=== PATIENT | female | born 1975 | race African-American/Black ===

== ENCOUNTER 2019-08-19 20:45 | Emergency (ER) | payer SELFPAY ==
[2019-08-19 20:48] VITALS: BP 153/103; PULSE 91; RESP 16; TEMP 36.9; O2SAT 98; BMI 39.9
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
[2019-08-19] MEDS: Acetaminophen 500 MG Tablet 1000 MG PO (21:18)
--- NOTE | 2019-08-19 21:50 | RAD_ITS ---
HISTORY: FELL ROLLER SKATINGLEFT HAND PAIN ADDITIONAL HISTORY: None provided. TECHNIQUE: Left hand 3 views Number of images including paperwork: 3 COMPARISON: None FINDINGS: BONES: No acute fracture. JOINTS: No subluxation. SOFT TISSUES: No distinct foreign body. RAD/Hand Min 3 Views IMPRESSION: No acute osseous abnormality. at 2214 Reported and signed by: Barbra Rocha MD Electronically Signed: Barbra Rocha MD at 22:14 EST Tel , Service support ,
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
[2019-08-19 22:51] VITALS: BP 145/95; PULSE 87; RESP 18; O2SAT 96
== END 2019-08-19 22:57 | disposition home or self-care (01) ==
LOC: ED 21:34
PROVIDERS: Emergency Provider Emergency Medicine
DX: S06.0X0A Concussion without loss of consciousness, initial encounter (principal); S60.222A Contusion of left hand, initial encounter; W22.01XA Walked into wall, initial encounter; Y93.51 Activity, roller skating (inline) and skateboarding; I10 Essential (primary) hypertension; M25.512 Pain in left shoulder
CPT/HCPCS: 70450; 73030; 73130; 99284